=== PATIENT | female | born 1985 | race Asian ===

== ENCOUNTER → 2016-03-31 | Outpatient (CLI) | payer BC ==
[~2016-03-31] MED LIST: PRENTAB26 PO
== END | disposition home or self-care (01) ==
LOC: C.PAPS 11:47
PROVIDERS: ATTEND Obstetrics & Gynecology
DX: Z01.419 Encounter for gynecological examination (general) (routine) without abnormal findings (principal)

== ENCOUNTER → 2016-05-03 | Outpatient (CLI) | payer BC ==
--- NOTE | 2016-05-03 12:41 | MAMMOGRAPHY REPORT ---
UNILATERAL LEFT DIGITAL DIAGNOSTIC MAMMOGRAM TOMOSYNTHESIS WITH CAD AND TARGETED LEFT ULTRASOUND: CLINICAL HISTORY: The patient reports left breast pain for approximately one month; she only feels t he pain when palpating the area. She denies any palpable lumps. TECHNIQUE: Breast tomosynthesis in addition to standard 2D mammography was performed. Current study was also evaluated with a Computer Aided Detection (CAD) system. Left CC and MLO 2-D and tomosynth esis images were obtained. COMPARISON: No prior exams were available for comparison. BREAST COMPOSITION: The tissue of the left breast is heterogeneously dense, which may obscure small masses. FINDINGS: A triangle marker bajwa the site of focal pain in the left upper inner quadrant. No susp icious masses or other suspicious abnormalities are noted in this region. The remainder of the left breast is negative, without suspicious masses, calcifications, or areas of architectural distortion noted mammographically. Targeted ultrasound was performed of the area of pain pointed out by the patient, in the left breast at approximately 11:00, 7 cm from the nipple. No suspicious masses or other suspicious sonographic abnormalities are evident. Incidentally noted are a few small round/oval anechoic circumscribed ma sses, consistent with cysts, the largest measuring approximately 3 mm. IMPRESSION: ACR BI-RADS CATEGORY 2: BENIGN, TARGETED ULTRASOUND ACR BI-RADS CATEGORY 2: BENIGN No suspicious mammographic or sonographic abnormality at the site of left breast pain. There is no mammographic or targeted sonographic evidence of malignancy. Recommend clinical follow-up for left breast pain, and recommend routine bilateral screening mammograms starting at the age of 40 unless o therwise clinically indicated. The patient has been verbally notified of the results. Approximately 10% of breast cancers are not detected with mammography. A negative mammographic repor t should not delay biopsy if a clinically suggestive mass is present. Marzena Jalloh M.D. /:05/03/2016 08:57:29 Cracking Unit Operator: Franci MOONEY)(Chery), [facility] letter sent: Normal 1/2 BI-RADS Code: ACR BI-RADS Category 2: Benign Ultrasound BI-RADS: ACR BI-RADS Category 2: Benign
== END | disposition home or self-care (01) ==
LOC: C.MAMM 08:31
PROVIDERS: ATTEND Obstetrics & Gynecology
DX: N64.4 Mastodynia (principal); N63 Unspecified lump in breast

== ENCOUNTER → 2017-01-04 | Outpatient (CLI) | payer BC ==
--- NOTE | 2017-01-04 09:06 | DIAGNOSTIC IMAGING REPORT ---
APPENDICEAL ULTRASOUND CLINICAL HISTORY: Right lower quadrant abdominal pain COMPARISON STUDY: No previous studies for comparison. FINDINGS: Ultrasonographic evaluation the right lower quadrant reveal no pathologic masses. There are no abnormal fluid collections. The appendix was not visualized. The study is therefore nondiagnostic in regards to acute appendicitis. IMPRESSION: No abnormalities identified. The appendix was not visualized. The examination is nondiagnostic in regards to acute appendicitis. Electronically signed by: Manuel Lindo M.D. 01/04/2017 9:05 AM Dictated Date/Time: 01/04/2017 9:04 AM
--- NOTE | 2017-01-04 09:29 | DIAGNOSTIC IMAGING REPORT ---
ULTRASOUND OF THE PELVIS CLINICAL HISTORY: Right pelvic pain. COMPARISON STUDY: No priors. TECHNIQUE: Real-time, grayscale, and color flow sonography of the pelvis is performed both transabdominally and endovaginally. Images are reviewed in the transverse and longitudinal planes. FINDINGS: Uterus: The uterus is normal in size and echotexture, measuring 11.7 x 4.6 x 5.9 cm. Small Nabothian cysts are noted in the cervix. Endometrium: The endometrium is normal in appearance, and mildly thickened measuring up to 1.3 cm. Ovaries: The ovaries are normal in size and morphology. The right ovary measures 3.8 x 2.4 x 3.9 cm and the left ovary measures 2.3 x 1.1 x 1.9 cm. There are numerous small ovarian follicles. Normal Doppler waveforms are shown within both ovaries. Pelvis: There is no free fluid in the cul-de-sac. No concerning adnexal lesion is seen. IMPRESSION: 1. No acute sonographic abnormality is seen in the pelvis. 2. The endometrial stripe appears mildly thickened measuring up to 1.3 cm. This is likely related to the phase of the patient's cycle. Electronically signed by: Rigo Francisco M.D. 01/04/2017 9:27 AM Dictated Date/Time: 01/04/2017 9:26 AM
== END | disposition home or self-care (01) ==
LOC: C.ULTRBC 08:26
PROVIDERS: ATTEND Family Medicine
DX: R10.9 Unspecified abdominal pain (principal)